=== PATIENT | female | born 1955 | race Caucasian/White ===

== ENCOUNTER 2016-08-08 16:08 | Emergency (ER) | payer OTHER ==
[~2016-08-08] VITALS: Ht 149.9 cm; Wt 87.5 kg
[~2016-08-08 16:08] MED LIST: ACID CONTROL20 MG PO; AMARYL2 MG PO; AMITRIPTYLINE H50 M2 PO; AMITRIPTYLINE H50 M3 PO; AMITRIPTYLINE H50 M4 PO; AMLODIPINE BESYL5 MG PO; AMOXICILLIN 50500 M1; ANALPRAM E 2.51 EAC1 TOP; APAP500 PO; ASPIR 8181 MG PO; ASPIRIN EC81 M1 PO; ASPIRIN325 PO; ASPIRIN81 M2 PO; ATORVASTATIN CA40 MG PO; AVELOX400 MG PO; BACTRIM DS TAB1 EACH PO; CEPHALEXIN 500500 M1 PO; CIPROFLOXACIN500 M1 PO; CITRATE OF MAG296 ML PO; CLARITIN10 MG PO; CYCLOBENZAPRINE10 MG PO; DIABETA 2.5MG2.5 MG; DIABETA 5MG TABL5 MG PO; DULCOLAX5 MG PO; FAMOTIDINE20 MG PO; FERREX-150 PLU150 MG PO; FLEXERIL; FLEXERIL PO; FLOVENT HFA 1110 MCG INH; FLUTICASONE PRO16 GM NS; GLUCOPHAGE XR500 MG PO; GLUCOPHAGE1000 MG PO; GLYBURIDE 5 MG T5 M1 PO; HYDROCODON-ACE1 EAC1 PO; HYDROCODON-ACE1 EAC8 PO; HYDROCODONE-APA1 TA1 PO; IBUPROFEN 800800 MG PO; IRON PO; IRON325 PO; LANTUS SUBQ; LANTUS100 UNIT/M SUBQ; LEVEMIR SUBQ; LEVOTHYROXIN0.075 MG PO; LEVOTHYROXINE0.05 MG PO; LIDODERM 5%1 PATC1 TOP; LIPITOR10 MG PO; LISINOPRIL2.5 MG PO; LISINOPRIL20 MG PO; LOPRESSOR 50 MG50 M1 PO; MECLIZINE HCL25 M1 PO; METOCLOPRAMIDE10 MG PO; MOM PO; MUCINEX TA600 MG/TA2 PO; NORCO 10-325 T1 EACH PO; NORCO 5-325 TA1 EACH PO; NORCO 7.5-3251 EACH PO; NORVASC 5 MG TAB5 MG PO; NOVOLOG100 UNIT/1 SUBQ; ONE DAILY MULT1 EAC2 PO; PACERONE 200 M200 M1 PO; PERCOCET PO; PHISOHEX148 ML; PRAVACHOL40 MG PO; PRILOSEC20 MG PO; PROAIR HFA8.5 GM IH; PROAIR HFA8.5 GM INH; PROTONIX 20 MG20 M1 PO; PROVENTIL HFA6.7 G1 INH; SENNA LAX8.6 MG PO; SENNA PO; SIMVASTATIN20 MG PO; TOPROL XL50 MG PO; TOVIAZ8 MG PO; TUCKS MEDICATE1 EAC1 TOP; VITAMIN D1000 UNI1 PO; ZANTAC 150MG T150 MG PO; ZESTRIL10 MG PO
[2016-08-08] MEDS ORDERED: ABREVA2 GM TOP (16:48)
[2016-08-08] MEDS ORDERED: ACYCLOVIR 400400 MG PO (16:48)
[2016-08-09] MEDS ORDERED: LIPITOR40 MG PO (22:14)
== END 2016-08-08 17:00 | disposition home or self-care (01) ==
LOC: ER 16:08
DX: B00.9 Herpesviral infection, unspecified (principal); M79.7 Fibromyalgia; I10 Essential (primary) hypertension; E11.9 Type 2 diabetes mellitus without complications; G56.03 Carpal tunnel syndrome, bilateral upper limbs; M19.90 Unspecified osteoarthritis, unspecified site; Z90.710 Acquired absence of both cervix and uterus; Z90.89 Acquired absence of other organs; Z95.1 Presence of aortocoronary bypass graft; Z88.5 Allergy status to narcotic agent; Z91.048 Other nonmedicinal substance allergy status; Z87.891 Personal history of nicotine dependence

== ENCOUNTER 2016-08-09 21:40 | Emergency (ER) | payer OTHER ==
[~2016-08-09] VITALS: Ht 149.9 cm; Wt 87.5 kg
[~2016-08-09 21:40] MED LIST changes: +ABREVA2 GM TOP; +ACYCLOVIR 400400 MG PO
[2016-08-09] MEDS ORDERED: LIPITOR40 MG PO (22:14)
== END 2016-08-09 22:23 | disposition home or self-care (01) ==
LOC: ER 21:40
DX: B00.9 Herpesviral infection, unspecified (principal); M79.7 Fibromyalgia; E11.9 Type 2 diabetes mellitus without complications; I10 Essential (primary) hypertension; M19.90 Unspecified osteoarthritis, unspecified site; G56.03 Carpal tunnel syndrome, bilateral upper limbs; Z90.710 Acquired absence of both cervix and uterus; Z90.89 Acquired absence of other organs; Z88.5 Allergy status to narcotic agent; Z91.018 Allergy to other foods; Z87.891 Personal history of nicotine dependence

== ENCOUNTER 2016-08-17 18:42 | Inpatient (IN) | payer OTHER ==
[~2016-08-17] VITALS: Ht 152.4 cm; Wt 88.5 kg
--- NOTE | ~2016-08-17 | H ---
[facility] [place] [address] HISTORY AND PHYSICAL Name: NEHA MARQUIS Room #: 309-P ADM IN M.R.#: [id number] Admission: 08/17/16 Attend Phys: Rian Bansal Discharge: Date of : 51 Report #: [id number] THIS REPORT FOR: //name// CC: Saran Song CHIEF COMPLAINT: Left foot pain. HISTORY OF PRESENT ILLNESS: The patient is a 60-year-old female who was admitted to the emergency room with sudden onset of pain in the left foot. She denies any injury or trauma or new activity. She was fine one night and then woke up the following morning with throbbing pain in the left foot. She noted swelling and redness over the dorsal aspect of the foot and it was so painful she could not stand to have a shoe on it or stand or walk. She tried taking her pain medicine at home but that did not help and so she presented to the emergency room. Overnight, she had been treated for cellulitis with IV antibiotics without much improvement in her symptoms. PAST MEDICAL HISTORY: Diabetes type 2, fibromyalgia, hypertension, coronary artery disease with cardiac bypass in 2011, history of pancreatitis, gastroparesis, history of carotid endarterectomy and osteoarthritis. PAST SURGICAL HISTORY: She has had knee replacement. FAMILY HISTORY: Noncontributory. SOCIAL HISTORY: She lives at home. No chronic alcohol or tobacco use. ALLERGIES: CODEINE. MEDICATIONS: Metoprolol, Levoxyl, Zantac, Toviaz, vitamin D, Senokot, Tylenol, metformin, amitriptyline, metoprolol, lisinopril, Flexeril, Lantus, albuterol, Flovent, NovoLog, [place], Amaryl and Lipitor. REVIEW OF SYSTEMS: She denies headache, chest pain, shortness of breath, abdominal pain, nausea, vomiting, diarrhea, constipation, dysuria or syncope. PHYSICAL EXAMINATION: VITAL SIGNS: Temperature 37.7, pulse 121, respirations 24, blood pressure 176/95 and O2 sat 95% on room air. GENERAL: Awake and alert, in no distress. LUNGS: Clear. HEART: Regular. ABDOMEN: Soft, normoactive bowel sounds. EXTREMITIES: No edema. The left foot has redness and swelling over the dorsal aspect in the mid foot. It is very tender to touch. She has a 2+ pulse. Fine touch sensation is intact. [address] [address] HISTORY AND PHYSICAL Name: NEHA MARQUIS Room #: 309-P [facility].#: [id number] Admission: 08/17/16 Attend Phys: Rian Bansal Discharge: Date of : 51 Report #: [id number] LABORATORY DATA: Reviewed. ASSESSMENT: 1. Acute inflammatory arthritis of the left foot. 2. Diabetes type 2. 3. Coronary artery disease. 4. Hypertension. PLAN: Her uric acid level was 7.2 and this may represent an acute gout flare. At this point, I do not feel joint aspiration be appropriate given this small joint nature of the foot. Empiric treatment for now. Home medications to continue. Since she has not had an elevated white count, I feel that we can discontinue IV antibiotics as well. <ELECTRONICALLY SIGNED> By: Nate Zarco MD 08/19/16 [id number] [id number] Nate Zarco MD /nt
[~2016-08-17 18:42] MED LIST changes: +LIPITOR40 MG PO
[2016-08-17 18:45] VITALS: BP 175/83
[2016-08-17 20:08] LABS: ABSOLUTE NEUTROPHILS 5.2 thou/uL (1.4-8.2); BASOPHILS 0.8 % (0.0-2.0); EOSINOPHILS 1.9 % (0.0-3.0); HEMATOCRIT 39.4 % (37.0-47.0); HEMOGLOBIN 12.9 gm/dL (12.0-15.0); LYMPHOCYTES 32.8 % (24.0-44.0); MCH 29.9 pg (26.0-34.0); MCHC 32.8 g/dL (28.0-37.0); MCV 91.1 fL (80.0-100.0); MONOCYTES 8.3 % (1.0-8.0); PLATELET COUNT 199 thou/uL (150-400); POLYS 56.2 % (36.0-66.0); RBC 4.33 mil/uL (4.20-5.00); RDW 14.8 % (10.5-14.5); WBC 9.3 thou/uL (4.0-11.0)
[2016-08-17 20:10] LABS: MANUAL DIFF NO
[2016-08-17 20:19] LABS: ANION GAP 10 mmol/L (7-16); BUN 21 mg/dL (7-18); CALCIUM 9.5 mg/dL (8.5-10.1); CHLORIDE 102 mmol/L (98-107); CO2 26 mmol/L (21-32); GLUCOSE 225 mg/dL (74-106); POTASSIUM 4.4 mmol/L (3.5-5.1); SODIUM 138 mmol/L (136-145)
[2016-08-17 20:24] LABS: ALKALINE PHOSPHATASE 81 U/L (46-116); DIRECT BILIRUBIN < 0.1 mg/dL (<0.1-0.3); SGOT 24 U/L (15-37); SGPT 33 U/L (30-65); TOTAL BILIRUBIN 0.6 mg/dL (<0.1-1.0); TOTAL PROTEIN 8.2 g/dL (6.4-8.2)
[2016-08-17 23:57] VITALS: BP 159/83
[2016-08-18 00:05] VITALS: BP 182/88
[2016-08-18 04:00] VITALS: BP 156/98
[2016-08-18 05:23] LABS: HEMATOCRIT 39.6 % (37.0-47.0); HEMOGLOBIN 13.1 gm/dL (12.0-15.0); MCH 29.9 pg (26.0-34.0); MCV 90.5 fL (80.0-100.0); RBC 4.38 mil/uL (4.20-5.00); WBC 10.9 thou/uL (4.0-11.0)
[2016-08-18 05:35] LABS: ALBUMIN 3.9 g/dL (3.4-5.0); CALCIUM 9.3 mg/dL (8.5-10.1); CREATININE 0.9 mg/dL (0.6-1.0); POTASSIUM 4.4 mmol/L (3.5-5.1); TOTAL BILIRUBIN 0.9 mg/dL (<0.1-1.0)
[2016-08-18 08:10] VITALS: BP 176/95
[2016-08-18 16:13] VITALS: BP 184/88
[2016-08-18 19:50] VITALS: BP 164/88
[2016-08-19 04:30] VITALS: BP 144/75
[2016-08-19 06:37] LABS: CALCIUM 9.5 mg/dL (8.5-10.1); CREATININE 1.2 mg/dL (0.6-1.0); POTASSIUM 5.3 mmol/L (3.5-5.1)
[2016-08-19 08:49] VITALS: BP 116/73
[2016-08-19 16:47] VITALS: BP 147/84
[2016-08-19 20:00] VITALS: BP 178/93
[2016-08-20 04:00] VITALS: BP 137/76
[2016-08-20 07:07] VITALS: BP 158/79
[2016-08-20 15:33] VITALS: BP 166/91
[2016-08-20 20:00] VITALS: BP 170/95
[2016-08-21 04:20] VITALS: BP 160/86
[2016-08-21 05:21] LABS: CALCIUM 9.2 mg/dL (8.5-10.1); POTASSIUM 4.3 mmol/L (3.5-5.1)
[2016-08-21 07:45] VITALS: BP 140/83
[2016-08-21] MEDS ORDERED: COLCHICINE0.6 MG PO (10:15)
[2016-08-21 12:59] VITALS: BP 140/83
== END 2016-08-21 13:50 | disposition home or self-care (01) | DRG 554 ==
LOC: ER 18:42 → 3N 22:11 → EROBS 22:11 → 3N 08-18 00:01
PROVIDERS: Internal Medicine Geriatric Medicine; Nurse Practitioner
DX: M10.9 Gout, unspecified (principal); M19.072 Primary osteoarthritis, left ankle and foot; E11.9 Type 2 diabetes mellitus without complications; I10 Essential (primary) hypertension; I25.10 Atherosclerotic heart disease of native coronary artery without angina pectoris; M19.90 Unspecified osteoarthritis, unspecified site; Z96.659 Presence of unspecified artificial knee joint; Z95.1 Presence of aortocoronary bypass graft; Z88.6 Allergy status to analgesic agent; Z91.048 Other nonmedicinal substance allergy status; Z91.018 Allergy to other foods; Z79.899 Other long term (current) drug therapy; Z87.81 Personal history of (healed) traumatic fracture; Z90.710 Acquired absence of both cervix and uterus; Z90.49 Acquired absence of other specified parts of digestive tract; Z87.891 Personal history of nicotine dependence
CPT/HCPCS: 10094

== ENCOUNTER → 2019-05-09 | Outpatient (CLI) | payer OTHER ==
[~2019-05-09] MED LIST changes: +COLCHICINE0.6 MG PO
== END ==
LOC: SJCVC 13:41
DX: R94.31 Abnormal electrocardiogram [ECG] [EKG] (principal); I45.10 Unspecified right bundle-branch block; I25.10 Atherosclerotic heart disease of native coronary artery without angina pectoris; E78.5 Hyperlipidemia, unspecified; I10 Essential (primary) hypertension; I65.23 Occlusion and stenosis of bilateral carotid arteries; E11.9 Type 2 diabetes mellitus without complications; Z95.1 Presence of aortocoronary bypass graft

== ENCOUNTER → 2019-11-16 | Outpatient (CLI) | payer OTHER | LOC: SJCVCIMAG 07:29 | PROVIDERS: ATTEND Internal Medicine | DX: I65.23 Occlusion and stenosis of bilateral carotid arteries (principal); I25.10 Atherosclerotic heart disease of native coronary artery without angina pectoris; R00.0 Tachycardia, unspecified; I45.10 Unspecified right bundle-branch block; E78.5 Hyperlipidemia, unspecified; I10 Essential (primary) hypertension; Z95.1 Presence of aortocoronary bypass graft; Z79.899 Other long term (current) drug therapy; Z87.891 Personal history of nicotine dependence ==

== ENCOUNTER → 2020-05-22 | Outpatient (CLI) | payer OTHER | LOC: SJCVC 10:36 | PROVIDERS: ATTEND Internal Medicine | DX: R94.31 Abnormal electrocardiogram [ECG] [EKG] (principal); I45.10 Unspecified right bundle-branch block; I25.10 Atherosclerotic heart disease of native coronary artery without angina pectoris; E78.5 Hyperlipidemia, unspecified; I10 Essential (primary) hypertension; I65.23 Occlusion and stenosis of bilateral carotid arteries; E11.9 Type 2 diabetes mellitus without complications; J44.9 Chronic obstructive pulmonary disease, unspecified; K21.9 Gastro-esophageal reflux disease without esophagitis; M10.9 Gout, unspecified; E78.00 Pure hypercholesterolemia, unspecified; Z79.899 Other long term (current) drug therapy; Z86.73 Personal history of transient ischemic attack (TIA), and cerebral infarction without residual deficits; Z79.4 Long term (current) use of insulin; Z87.891 Personal history of nicotine dependence; Z95.1 Presence of aortocoronary bypass graft; Z88.8 Allergy status to other drugs, medicaments and biological substances; Z88.5 Allergy status to narcotic agent ==

== ENCOUNTER → 2020-11-26 | Outpatient (CLI) | payer OTHER | LOC: SJCVCIMAG 07:22 | PROVIDERS: ATTEND Internal Medicine | DX: R94.31 Abnormal electrocardiogram [ECG] [EKG] (principal); I45.10 Unspecified right bundle-branch block; I65.23 Occlusion and stenosis of bilateral carotid arteries; I25.10 Atherosclerotic heart disease of native coronary artery without angina pectoris; E78.5 Hyperlipidemia, unspecified; I10 Essential (primary) hypertension; E11.9 Type 2 diabetes mellitus without complications; J44.9 Chronic obstructive pulmonary disease, unspecified; E78.00 Pure hypercholesterolemia, unspecified; Z95.1 Presence of aortocoronary bypass graft; Z86.16 Personal history of COVID-19; Z86.73 Personal history of transient ischemic attack (TIA), and cerebral infarction without residual deficits; Z79.899 Other long term (current) drug therapy; Z87.891 Personal history of nicotine dependence; Z88.8 Allergy status to other drugs, medicaments and biological substances; Z88.5 Allergy status to narcotic agent ==